=== PATIENT | female | born 1970 | race Caucasian/White ===

== ENCOUNTER 2018-12-05 06:22 | Day surgery (SDC) | payer OTHER ==
[~2018-12-05] VITALS: Ht 167.6 cm; Wt 102.0 kg
[2018-12-05 06:41] VITALS: BP 154/85
[2018-12-05 10:06] VITALS: BP 157/95
== END 2018-12-05 09:45 | disposition home or self-care (01) ==
LOC: DS 06:22 → OR 07:30 → DS 07:30
DX: N92.0 Excessive and frequent menstruation with regular cycle (principal)
CPT/HCPCS: 82962; C1758; J0690; J1815; J2250; J3010